=== PATIENT | male | born 1975 | race Caucasian/White ===

== ENCOUNTER → 2020-11-26 | Outpatient (CLI) | payer OTHER ==
[~2020-11-26] MED LIST: BACTROBAN OINT22 GM EXT; CEFUROXIME500 MG PO; TESSALON PERLE100 MG PO
== END ==
LOC: HEART 5 10:42
DX: R00.2 Palpitations (principal)

== ENCOUNTER → 2021-02-23 | Outpatient (CLI) | payer OTHER | LOC: EXRD 14:14 | DX: M25.512 Pain in left shoulder (principal); M25.511 Pain in right shoulder | CPT/HCPCS: 73522 ==

== ENCOUNTER → 2021-12-30 | Outpatient (CLI) | payer OTHER | LOC: HEART 5 12-09 09:00 | DX: R00.2 Palpitations (principal); R55 Syncope and collapse | CPT/HCPCS: 93306 ==

== ENCOUNTER 2022-03-24 19:34 | Emergency (ER) | payer OTHER ==
[2022-03-24] MEDS ORDERED: CYCLOBENZAPRINE10 MG PO (21:17)
== END 2022-03-24 21:28 | disposition home or self-care (01) ==
LOC: ER1 19:34
DX: S63.502A Unspecified sprain of left wrist, initial encounter (principal); S30.0XXA Contusion of lower back and pelvis, initial encounter; F17.210 Nicotine dependence, cigarettes, uncomplicated; W19.XXXA Unspecified fall, initial encounter
CPT/HCPCS: 72131; 73090; 73110; 73130; 96372; 99284; J1885

== ENCOUNTER → 2022-05-20 | Outpatient (CLI) | payer OTHER ==
[~2022-05-20] MED LIST changes: +CYCLOBENZAPRINE10 MG PO
== END ==
LOC: EXRD 09:33
DX: R10.9 Unspecified abdominal pain (principal); K80.20 Calculus of gallbladder without cholecystitis without obstruction
CPT/HCPCS: 76700